=== PATIENT | male | born 1975 | race Caucasian/White ===

== ENCOUNTER 2019-02-12 07:32 | Day surgery (SDC) | payer OTHER ==
[~2019-02-12] VITALS: Ht 175.3 cm; Wt 118.0 kg
[~2019-02-12 07:32] MED LIST: ACETAMINOPHEN 500 MG TABLET PO PRN; ALPR0.5T6 PO; CITA40TA5 PO; HYDROmorphone 2 MG/ML VIAL IV PRN; IBUP-1027 PO; IV RINGERS,LACTATED 1000ML 1,000 ML IV SCH; LEVO75TA5 PO; LIDOCAINE 1% PF 2 ML VIAL. ID PRN; MORPHINE SULFATE 2 MG/ML VIAL. IV PRN; OMEP40CA45 PO; ONDANSETRON PF 4 MG/2 ML VIAL. IV PRN; PHEN37.53 PO; PROCHLORPERAZINE 10 MG/2 ML VIAL. IV PRN; TOPI50TA8 PO; ZOLP10TA4 PO; fentaNYL PF VIAL 100 MCG/2 ML VIAL IV PRN
[2019-02-12] MEDS ORDERED: ceFAZolin 2GM PREMIX 2 GM/50 ML BAG IV ONE (08:00)
[2019-02-12] MEDS ORDERED: LIDOCAINE 2% PF 5 ML VIAL. ONE (08:12)
[2019-02-12] MEDS ORDERED: GLYCOPYRROLATE 1 MG/5 ML VIAL. ONE (08:12)
[2019-02-12] MEDS ORDERED: PROPOFOL 20 ML IV ONE (08:12)
[2019-02-12] MEDS ORDERED: MIDAZOLAM HCL/PF 2 MG/2 ML VIAL. ONE (08:12)
[2019-02-12] MEDS ORDERED: DEXAMETHASONE SOD PHOS 4 MG/ML VIAL ONE (08:12)
[2019-02-12] MEDS ORDERED: fentaNYL PF VIAL 100 MCG/2 ML VIAL ONE ×3 (08:12→11:10)
[2019-02-12] MEDS ORDERED: NEOSTIGMINE METHYLSULFATE 5 MG/5 ML SYRINGE. ONE (08:12)
[2019-02-12] MEDS ORDERED: ROCURONIUM 50 MG/5 ML VIAL. ONE (08:12)
[2019-02-12] MEDS ORDERED: ONDANSETRON PF 4 MG/2 ML VIAL. ONE (08:13)
[2019-02-12] MEDS ORDERED: KETOROLAC 30 MG/ML VIAL. ONE (08:13)
[2019-02-12] MEDS ORDERED: SEVOFLURANE 31 TO 60 MINUTES. IH ONE (08:14)
[2019-02-12] MEDS ORDERED: SCOPOLAMINE 1.5MG PATCH. TD ONE (08:30)
[2019-02-12] MEDS ORDERED: BUPIVACAINE-EPI 0.25%-1:200000 MPF 30 ML VIAL. INJ ONE (09:00)
--- NOTE | 2019-02-12 09:20 | PDOC4 ---
Operative Note Operative Note Date: 02/12/2019 Preoperative diagnosis: Cholecystitis with cholelithiasis Postoperative diagnosis: Same Procedure: Laparoscopic cholecystectomy Surgeon: Rick Specimen: Gallbladder Dictation: Patient is 43-year-old male with right upper quadrant abdominal pain ultrasound showing gallstones. The procedure of laparoscopic cholecystectomy was explained to the patient in detail risks benefits were also discussed including bleeding infection alternatives to this procedure also discussed with the patient who seemed to understand and gave both verbal and written consent had th e procedure performed. Patient was taken to the operating room placed in supine position general anesthesia was initiated once patient was sleep and intubated his abdomen was prepped and draped usual sterile fashion using ChloraPrep. An area just below the umbilicus was injected with quarter percent Marcaine with epinephrine incision was made with 11 blade scalpel is needle was placed within the abdomen creating pneumoperitoneum once this was complete 11 mm port was placed and a 5 mm camera was placed within the abdomen which was inspected no other abnormalities were noted. A 5 mm port was placed in the epigastrium a 5 mm port was placed in the right mid abdomen and one in the right lateral abdomen. The dome of the gallbladder is grasped retracted cephalad the infundibulum of the gallbladder is grasped retracted laterally exposing the triangle adherent tissues the triangle were taken down with blunt dissection exposing the cystic duct and cystic artery both were doubly clipped and transected the gallbladder w as taken off the liver with a clot cautery placed in Endo Catch bag and removed from the umbilicus right upper quadrant was irrigated and suctioned dry hemostasis was deemed to be appropriate and the pneumoperitoneum was reduced all ports removed the fascial defect at the umbilicus was closed with a [id number] 0 Vicryl suture and the skin was reapproximated all port sites with 4-0 subcuticular Monocryl Mastisol Steri-Strips and island dressings were applied. The patient was awakened and extubated in the operating room taken to recovery in stable condition all sponge instrument needle counts listed as correct estimated blood loss 5 mL SANTOSH DAWSON MD Feb 12, 2019 09:20
--- NOTE | 2019-02-12 09:22 | DISCH ---
DISCHARGE INSTRUCTIONS Condition on Discharge Condition on Discharge: Stable Activity After Discharge Activity Instructions for Disc: Avoid exertion Other activity instructions: no lifting more than 20 pounds for 2 weeks Diet after Discharge Diet after Discharge: Low Fat Wound Incision Care Other wound/incision instructi: May shower in 24 hours Contacting the after DC Call your doctor for: If your condition worsens Follow-Up Follow up with: Dr. Dawson in 2 weeks SANTOSH DAWSON MD Feb 12, 2019 09:22
[2019-02-12] MEDS ORDERED: PROCHLORPERAZINE 10 MG/2 ML VIAL. ONE (09:28)
[2019-02-12] MEDS ORDERED: OXYC1TAB15 PO (09:33)
[2019-02-12] MEDS ORDERED: oxyCODONE/APAP 5/325 1 TAB TABLET PO ONE (09:45)
[2019-02-12 10:40] VITALS: BP 135/65
--- NOTE | 2019-02-15 15:07 | PATHOLOGY ---
[facility] Accession Number: [id number] . 01 Material submitted: . gallbladder - GALLBLADDER . 01 Clinical history: . None provided. . 02 Diagnosis: Gallbladder, laparoscopic cholecystectomy: - Cholelithiasis. - Cholesterolosis. - Chronic cholecystitis. ([facility] 02/15/2019) [facility] 02/15/2019 1230 Local . 02 Comment: There is no evidence of malignancy. ([facility] 02/15/2019) . 02 Electronically signed: . Duy Curtis MD, Pathologist NPI- [id number] . 01 Gross description: . Received in formalin labeled "Jenn, [place], gallbladder" is an intact cholecystectomy specimen measuring 8.6 x 3.6 x 3.1 cm. The serosa is duvall-green and smooth and the specimen is opened to reveal duvall-green velvety mucosa with extensive yellow stippling, without polyps or masses. The average wall thickness is 0.1 cm. One calculus is present, which is duvall-green and roughened, and measures 0.7 cm in greatest dimension. Artificial Candy [employer] sections of the fundus and body and the cystic duct margin are submitted in A1. ([facility] [place]; 02/14/2019) SYC/C 02/14/2019 1118 Local . 02 Pathologist provided ICD-10: K80.10, K82.4 . 02 CPT . 470867 Specimen Comment: A courtesy copy of this report has been sent to [phone] Specimen Comment: Report sent to Performed at: 01 [facility] [address], [place], [place] [id number] MD Andres Ramos MD Phone: [phone] Performed at: 02 [facility] [address], [place] [id number] MD Duy Curtis MD Phone: [phone]
== END 2019-02-12 10:56 | disposition home or self-care (01) ==
LOC: SURG 07:32
PROVIDERS: ATTEND Surgery
DX: K80.10 Calculus of gallbladder with chronic cholecystitis without obstruction (principal); K21.9 Gastro-esophageal reflux disease without esophagitis; K57.30 Diverticulosis of large intestine without perforation or abscess without bleeding; F41.9 Anxiety disorder, unspecified; F32.9 Major depressive disorder, single episode, unspecified; E66.9 Obesity, unspecified; Z68.37 Body mass index [BMI] 37.0-37.9, adult; Z72.89 Other problems related to lifestyle
CPT/HCPCS: 47562; 88304; A7015; J0696; J0780; J1100; J1885; J2001; J2250; J2405; J2704; J2710; J3010; J3490; J7030; J7120